=== PATIENT | female | born 1985 | race Caucasian/White ===

== ENCOUNTER 2017-07-17 18:03 | Emergency (ER) | payer OTHER ==
[~2017-07-17] VITALS: Ht 170.2 cm; Wt 79.4 kg
--- NOTE | ~2017-07-17 | CR21 ---
[facility] A Service of [facility] RADIOLOGY TEXT RESULTS PATIENT: DEEPIKA SANDOVAL LOCATION: CFTX : 85 UNIT #: [id number] AGE: [address]: CARLOS QUINTANA APRN SEX: F ORDER DR: [id number] [facility] [address] [place], [place] [address] [id number] E MR#: [id number] Acc #: [id number] NAME: DEEPIKA SANDOVAL : 1985 SEX: F STUDY DATE/TIME: 07/17/2017 18:35 UNIT: [facility] ROOM: STUDY DESCRIPTION: CR Ankle Min 3 Views Rt Attending Physician: Carlos Quintana Aprn Ordering Physician: Esha Marsh P.A.-C. Primary Care Physician: Primary Care Physician No MEDICAL IMAGING REPORT This report is preliminary unless electronic signature is present EXAM Right ankle 3 views 07/17/2017 HISTORY Right ankle pain and edema, rolled ankle status post fall 07/16/2017. FINDINGS AP, lateral, and oblique projections of the ankle show satisfactory integrity of the joint mortise with a smooth articular surface. There is no identifiable fracture, dislocation, or radiopaque foreign body. IMPRESSION Normal ankle. Dictated by... Salinas Grady M.D. THIS IS AN ELECTRONICALLY VERIFIED REPORT Salinas Grady M.D. at 07/18/2017 2:16 PM NESS/michael TD: 07/18/2017 09:36 JOB #: [id number] MEDICAL IMAGING REPORT Page 1 of 1 COPY
[~2017-07-17 18:03] MED LIST: ACETAMINOPHEN PO; AMOXICILLIN PO; CIPRO PO; DIFLUCAN PO; DOXYCYCLINE PO; FAMOTIDINE PO; FLAGYL PO; FLEXERIL PO; IBUPROFEN PO; IRON1 TA1 PO; LORTAB 7.5-5001 TAB PO; MACROBID100 MG PO; METROGEL-VAGINA70 GM VG; NO MEDICATIONS; PHENERGAN PO; PRENATAL1 TA1 PO; PYRIDIUM PO; ZANTAC PO
[2017-07-17 19:39] LABS: BASOPHIL% 0.4 % (0-2.5); EOSINOPHIL# 0.1 X10e3 (0-0.7); EOSINOPHIL% 0.9 % (0.0-7.0); HEMOGLOBIN 12.9 gm/dL (12.0-16.0); LYMPHOCYTE# 1.8 X10e3 (1.0-3.5); LYMPHOCYTE% 23.1 % (17.0-45.0); MEAN CELL VOLUME 90.9 FL (83-96); MEAN CORPUSCULAR HEMOGLOBIN 31.6 PG (28-34); MEAN CORPUSCULAR HGB CONC 34.7 g/dL (30-36); MEAN PLATELET VOLUME 9.5 FL (6.5-11.5); MONOCYTE# 0.5 X10e3 (0-1.0); MONOCYTE% 6.5 % (3.0-12.0); NEUTROPHIL# 5.4 X10e3 (1.5-7.1); NEUTROPHIL% 69.1 % (40-75); PLATELET COUNT 227 X10e3 (140-420); RED BLOOD COUNT 4.07 X10e (3.90-5.30); RED CELL DISTRIBUTION WIDTH 13.4 % (11.0-15.5); WHITE BLOOD COUNT 7.7 X10e3 (4.0-10.5)
[2017-07-17 19:41] LABS: DIFF IND NO
[2017-07-17 20:07] LABS: ALBUMIN SERUM 4.4 g/dL (3.5-5.0); BILIRUBIN, DIRECT 0.1 mg/dL (0.0-0.2); BILIRUBIN,INDIRECT 0.7 mg/dL (0.0-0.9); BILIRUBIN,TOTAL 0.8 mg/dL (0.2-2.0); BUN/CREATININE RATIO 18.57; CALCIUM SERUM 9.2 mg/dL (8.4-10.2); CREATININE SERUM 0.7 mg/dL (0.6-1.4); GLOM FILT RATE Estimated 114.6 mL/min (>60); POTASSIUM 3.4 mmol/L (3.5-5.1); PROTEIN TOTAL SERUM 7.5 g/dL (6.0-8.3)
[2017-07-20 06:02] LABS: CHLAMYDIA TRACH Not Detected (Not Detected); N GONOR Not Detected (Not Detected)
== END 2017-07-17 20:25 | disposition home or self-care (01) ==
LOC: CFTX 18:03 → CED 18:03 → CFTX 18:57
PROVIDERS: Nurse Practitioner Family; Physician Assistant
DX: S93.401A Sprain of unspecified ligament of right ankle, initial encounter (principal); K21.9 Gastro-esophageal reflux disease without esophagitis; Z90.49 Acquired absence of other specified parts of digestive tract; K58.9 Irritable bowel syndrome, unspecified; F17.210 Nicotine dependence, cigarettes, uncomplicated; Z88.8 Allergy status to other drugs, medicaments and biological substances; X58.XXXA Exposure to other specified factors, initial encounter
CPT/HCPCS: 73610; 80048; 80076; 83690; 84703; 85025; 87491; 87591; 87808; 87905; 99284